=== PATIENT | female | born 1985 | race Caucasian/White ===

== ENCOUNTER 2016-09-16 11:00 | Inpatient (IN) | payer OTHER ==
[~2016-09-16] VITALS: Ht 167.6 cm; Wt 93.0 kg
[~2016-09-16 11:00] MED LIST: ADVIL,NUPRIN,M200 MG PO; ATARAX,VISTARIL50 MG PO; BENTYL20 MG PO; BUSPAR5 MG PO; CITALOPRAM HBR20 MG PO; HYDROXYZINE PAM25 MG PO; IBUPROFEN800 MG PO; LORAZEPAM0.5 MG PO; PRENATAL TABLE1 EAC3 PO; PRILOSEC OTC20 MG PO; TYLENOL EXTRA500 MG PO
[2016-09-16 12:11] LABS: ADD MIUA? YES; BILIRUBIN NEGATIVE; BLOOD MODERATE; COLOR YELLOW ((YELLOW)); GLUCOSE (STRIP) NEGATIVE; KETONES NEGATIVE; LEUKOCYTES LARGE; NITRITE POSITIVE; PROTEIN (STRIP) 100; SPECIFIC GRAVITY 1.012 (1.000-1.030); UROBILINOGEN 0.2 MG/DL (0.2-1.0)
[2016-09-16 12:30] LABS: UCUL ADDED? YES; WHITE BLOOD CELLS TNTC /HPF (0-5)
[2016-09-16 12:34] LABS: HEMATOCRIT 43.2 % (36.0-46.0); MCH 29.3 PG (29.0-34.0); MCHC 33.3 G/DL (30.0-36.0); MCV 87.8 FL (83-99); PLATELET COUNT 289 K/uL (156-360); RBC DIS.WIDTH-CV 13.6 % (11.8-14.6); RBC DIS.WIDTH-SD 44.1 % (39-53); RED BLOOD COUNT 4.92 M/uL (3.80-5.20)
[2016-09-16 12:59] LABS: QUANTITATIVE HCG 11909.7 MIU/ML
[2016-09-16] MEDS ORDERED: OXCARBAZEPINE300 MG PO (13:11)
[2016-09-16] MEDS ORDERED: ALPRAZOLAM ER0.5 MG PO (13:11)
[2016-09-16] MEDS ORDERED: OXCARBAZEPINE600 MG PO (13:12)
[2016-09-16 14:59] LABS: CHLORIDE 106 mEq/L (99-109); POTASSIUM 3.6 mEq/L (3.7-5.4); SODIUM 139 mEq/L (136-147)
[2016-09-16 15:01] LABS: GLUCOSE 88 mg/dL (70-99)
[2016-09-16 15:02] LABS: ANION GAP 12 MEQ/L (2-14)
[2016-09-16 15:05] LABS: GFR ESTIMATE (CALCULATED) > 59 mL/min/
[2016-09-16 15:06] LABS: UREA NITROGEN (BUN) 7 mg/dL (9-23)
[2016-09-16] MEDS ORDERED: CELEXA40 MG PO (15:09)
[2016-09-16] MEDS ORDERED: ATARAX,VISTARIL25 MG PO (15:10)
[2016-09-16 19:36] VITALS: BP 121/68
[2016-09-16 23:42] VITALS: BP 101/50
[2016-09-17 03:02] VITALS: BP 109/55
[2016-09-17 06:41] LABS: ANION GAP 8 MEQ/L (2-14); CHLORIDE 107 MEQ/L (99-109); POTASSIUM 3.7 MEQ/L (3.7-5.4); SAMPLE HEMOLYSIS CHECK 0; SAMPLE ICTERIC CHECK 0; SAMPLE LIPEMIA CHECK 0; SODIUM 136 MEQ/L (136-147)
[2016-09-17 06:47] LABS: GFR ESTIMATE (CALCULATED) > 59 mL/min/; GLUCOSE 94 mg/dL (70-99); UREA NITROGEN (BUN) 6 mg/dL (9-23)
[2016-09-17 07:06] LABS: MCH 31.1 PG (29.0-34.0); MCHC 34.4 G/DL (30.0-36.0); MCV 90.2 FL (83-99); RBC DIS.WIDTH-CV 13.7 % (11.8-14.6); RBC DIS.WIDTH-SD 45.5 % (39-53); RED BLOOD COUNT 3.99 M/uL (3.80-5.20); WHITE BLOOD COUNT 9.5 K/uL (4.1-10.2)
[2016-09-17 07:23] LABS: HEMATOLOGY COMMENT 1 SMEAR COMPATIBLE; MEAN PLAT.VOLUME 9.4 uM^3 (9.5-12.4); PLAT.SUFFICIENCY ADEQUATE
[2016-09-17 07:25] LABS: PLATELET COUNT 167 K/uL (156-360)
[2016-09-17 08:02] VITALS: BP 103/59
[2016-09-17 12:14] VITALS: BP 112/54
[2016-09-17 16:53] VITALS: BP 110/54
[2016-09-17 19:27] VITALS: BP 113/59
[2016-09-17 23:27] VITALS: BP 108/54
[2016-09-18 06:41] LABS: EOSINOPHIL (%) 0.8 % (0-5); EOSINOPHIL COUNT 0.1 K/uL (0-0.3); HEMATOCRIT 40.7 % (36.0-46.0); IMMATURE GRANULOCYTE (%) 0.5 % (0.0-0.7); INSTRUMENT ABS NEUTROPHIL CT 5.4 K/uL; LYMPHOCYTE COUNT 1.5 K/uL (1.0-2.8); MCH 29.6 PG (29.0-34.0); MCHC 32.7 G/DL (30.0-36.0); MCV 90.4 FL (83-99); MEAN PLAT.VOLUME 9.3 uM^3 (9.5-12.4); MONOCYTE (%) 6.1 % (3-12); MONOCYTE COUNT 0.5 K/uL (0-0.8); NEUTROPHIL (%) 72.2 % (45-76); NEUTROPHIL COUNT 5.4 K/uL (1.8-6.4); PLATELET COUNT 183 K/uL (156-360); RBC DIS.WIDTH-CV 13.5 % (11.8-14.6); RBC DIS.WIDTH-SD 45.3 % (39-53); WHITE BLOOD COUNT 7.5 K/uL (4.1-10.2)
[2016-09-18 07:18] LABS: ANION GAP 11 MEQ/L (2-14); CHLORIDE 106 MEQ/L (99-109); GFR ESTIMATE (CALCULATED) > 59 mL/min/; GLUCOSE 80 mg/dL (70-99); POTASSIUM 3.9 MEQ/L (3.7-5.4); SAMPLE HEMOLYSIS CHECK 0; SAMPLE ICTERIC CHECK 0; SAMPLE LIPEMIA CHECK 0; SODIUM 138 MEQ/L (136-147); UREA NITROGEN (BUN) 5 mg/dL (9-23)
[2016-09-18 07:21] VITALS: BP 110/59
[2016-09-18] MEDS ORDERED: ACETAMINOPHEN650 M5 PO (13:35)
[2016-09-18] MEDS ORDERED: CEFTIN500 MG PO (13:35)
== END 2016-09-18 15:11 | disposition home or self-care (01) | DRG 781 ==
LOC: EME 11:00 → ENRESERV 16:56 → 2EAST 16:59 → EDOF 16:59 → ENRESERV 17:04 → 2EAST 19:27
PROVIDERS: Internal Medicine
DX: O23.01 Infections of kidney in pregnancy, first trimester (principal); N10 Acute pyelonephritis; O98.811 Other maternal infectious and parasitic diseases complicating pregnancy, first trimester; R78.81 Bacteremia; B96.20 Unspecified Escherichia coli [E. coli] as the cause of diseases classified elsewhere; O99.281 Endocrine, nutritional and metabolic diseases complicating pregnancy, first trimester; E87.6 Hypokalemia; O30.001 Twin pregnancy, unspecified number of placenta and unspecified number of amniotic sacs, first trimester; O99.341 Other mental disorders complicating pregnancy, first trimester; F33.41 Major depressive disorder, recurrent, in partial remission; F41.1 Generalized anxiety disorder; F41.0 Panic disorder [episodic paroxysmal anxiety]; O99.611 Diseases of the digestive system complicating pregnancy, first trimester; K21.9 Gastro-esophageal reflux disease without esophagitis; K58.9 Irritable bowel syndrome, unspecified; O99.211 Obesity complicating pregnancy, first trimester; E66.9 Obesity, unspecified; Z68.33 Body mass index [BMI] 33.0-33.9, adult; O99.331 Smoking (tobacco) complicating pregnancy, first trimester; F17.200 Nicotine dependence, unspecified, uncomplicated; Z3A.08 8 weeks gestation of pregnancy; Z86.718 Personal history of other venous thrombosis and embolism; Z87.440 Personal history of urinary (tract) infections
CPT/HCPCS: 76801; 80048; 81003; 83605; 84702; 85025; 85027; 87040; 87077; 87086; 87186; 87801; 99281; 99285; J0696; J2405; J7030; J7050